=== PATIENT | male | born 1970 | race Caucasian/White ===

== ENCOUNTER 2017-03-08 06:14 | Day surgery (SDC) | payer OTHER ==
[~2017-03-08] VITALS: Ht 193 cm; Wt 175.0 kg
[~2017-03-08 06:14] MED LIST: GABA300C10 PO; GLIP10TA13 PO; LISI-167 PO; METF500T4 PO; SIMV10TA3 PO
[2017-03-08] MEDS ORDERED: LACTATED RINGERS 1,000 ML IV SCH (07:00)
[2017-03-08 07:03] VITALS: BP 151/97
[2017-03-08] MEDS ORDERED: ONDANSETRON 2MG/ML, 2ML IVPush PRN (08:00)
[2017-03-08] MEDS ORDERED: OXYcodone 5 MG/5 ML ORAL.SOL UDC PO PRN (08:00)
[2017-03-08] MEDS ORDERED: morphine SULFATE 10 MG/ML, 1ML IV PRN (08:00)
[2017-03-08] MEDS ORDERED: BACITRACIN 50,000 UNIT ONE (08:01)
[2017-03-08] MEDS ORDERED: EPINEPHRINE 1 MG/ML, 1ML ONE (08:01)
[2017-03-08] MEDS ORDERED: BUPIVACAINE/PF 0.5% ONE (08:01)
[2017-03-08] MEDS ORDERED: ROCURONIUM 10 MG/ML ONE (08:19)
[2017-03-08] MEDS ORDERED: GLYCOPYRROLATE 0.2MG/1ML ONE (08:19)
[2017-03-08] MEDS ORDERED: CEFAZOLIN 1,000 MG ONE (08:19)
[2017-03-08] MEDS ORDERED: NEOSTIGMINE 1 MG/ML, 10ML ONE (08:19)
[2017-03-08] MEDS ORDERED: SUCCINYLCHOLINE 20 MG/ML, 10ML ONE (08:19)
[2017-03-08] MEDS ORDERED: DEXAMETHASONE 4 MG/ML, 1ML ONE (08:19)
[2017-03-08] MEDS ORDERED: ONDANSETRON 2MG/ML, 2ML ONE (08:19)
[2017-03-08] MEDS ORDERED: PROPOFOL 10 MG/ML, 50ML ONE (08:19)
[2017-03-08] MEDS ORDERED: NEOSPORIN OINT, 15GM ONE (09:53)
[2017-03-08] MEDS ORDERED: OXYcodone 5 MG/5 ML ORAL.SOL UDC ONE (10:12)
[2017-03-08] MEDS ORDERED: FENTANYL PF 100 MCG/2ML ONE (10:12)
[2017-03-08] MEDS: FENTANYL PF 100 MCG/2ML IV PRN ×2 (10:14→10:31)
[2017-03-08] MEDS ORDERED: KETOROLAC 30 MG/1 ML ONE (10:27)
[2017-03-08] MEDS ORDERED: KETOROLAC 30 MG/1 ML IM SCH (10:30)
[2017-03-08] MEDS ORDERED: KETOROLAC 30 MG/1 ML IM ONE (11:00)
== END 2017-03-08 14:40 ==
LOC: OUT 06:14
PROVIDERS: ATTEND Surgery
DX: K42.0 Umbilical hernia with obstruction, without gangrene (principal); E11.9 Type 2 diabetes mellitus without complications; E78.00 Pure hypercholesterolemia, unspecified; I10 Essential (primary) hypertension; G62.9 Polyneuropathy, unspecified; E66.01 Morbid (severe) obesity due to excess calories; Z68.42 Body mass index [BMI] 45.0-49.9, adult; Z98.890 Other specified postprocedural states; Z87.891 Personal history of nicotine dependence; Z72.89 Other problems related to lifestyle
CPT/HCPCS: 49653; 82962; C1781; J0330; J0690; J1100; J1885; J2250; J2405; J2704; J2710; J3010; J3490; J7120; J0171